=== PATIENT | male | born 1960 | race Caucasian/White ===

== ENCOUNTER 2017-11-14 00:17 | Emergency (ER) | payer SELFPAY ==
[~2017-11-14] VITALS: Ht 177.8 cm; Wt 64.6 kg
[~2017-11-14 00:17] MED LIST: AMOX1TAB64 PO; OXYC5TAB3 PO
[2017-11-14 00:23] VITALS: BP 100/72
[2017-11-14] MEDS ORDERED: HYDROcodone/APAP 5/325 TABLET ONE (01:06)
[2017-11-14] MEDS ORDERED: HYDROcodone/APAP 5/325 TABLET PO ONE (01:30)
== END 2017-11-14 01:36 | disposition home or self-care (01) ==
LOC: ED 01:27
DX: S00.212A Abrasion of left eyelid and periocular area, initial encounter (principal); F17.200 Nicotine dependence, unspecified, uncomplicated; X58.XXXA Exposure to other specified factors, initial encounter; Y93.89 Activity, other specified; Y92.89 Other specified places as the place of occurrence of the external cause; Y99.8 Other external cause status
CPT/HCPCS: 99283

== ENCOUNTER 2018-04-27 05:25 | Inpatient (IN) | payer MEDICAID ==
[~2018-04-27] VITALS: Ht 177.8 cm; Wt 65.6 kg
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
--- NOTE | 2018-04-27 05:52 | NUR ---
PT STATES "COULD NOT EATING CAUSE THIS? BECAUSE I HAVEN'T EATEN IN A DAY". THEN STATES "IF I'M HAVING CHEST PAIN, I CAN STAY FOR LIKE 3 DAYS RIGHT". PT WAS EDUCATED ON THE TESTS ORDERED AND THAT WE WILL WAIT FOR THE RESULTS FROM TESTS ORDERED BEFORE THE ERP MAKES A DECISION. PT WATCHING TV AND APPEARS TO BE COMFORTABLE AT THIS TIME.
[2018-04-27] MEDS ORDERED: SODIUM CHLORIDE FLUSH 10ML SYR IVF ONE (06:00)
--- NOTE | 2018-04-27 06:12 | NUR ---
LAB AT BEDSIDE
[2018-04-27 06:32] LABS: BASOPHILS # (AUTO) 0.02 x10^3/uL (0-0.1); BASOPHILS % (AUTO) 0 % (0-1); EOSINOPHILS # (AUTO) 0.16 x10^3/uL (0-0.4); EOSINOPHILS % (AUTO) 2 % (1-7); LYMPHOCYTES # (AUTO) 1.04 x10^3/uL (1-3.4); LYMPHOCYTES % (AUTO) 15 % (22-44); MD NO; MEAN CORPUSCULAR HEMOGLOBIN 30.6 pg (27.5-34.5); MEAN CORPUSCULAR HGB CONC 33.5 g/dL (33.2-36.2); MEAN CORPUSCULAR VOLUME 91.2 fL (81-97); MEAN PLATELET VOLUME 6.6 fL (7.4-10.4); MONOCYTES # (AUTO) 0.27 x10^3/uL (0.2-0.8); MONOCYTES % (AUTO) 4 % (2-9); NEUTROPHILS # (AUTO) 5.27 x10^3/uL (1.8-6.8); NEUTROPHILS % (AUTO) 78 % (42-75); PLATELET COUNT 275 x10^3/uL (130-400); RED BLOOD COUNT 4.45 x10^6/uL (4.38-5.82)
[2018-04-27 06:45] LABS: ALBUMIN 3.3 g/dL (3.4-5.0); ANION GAP 9 mmol/L (5-15); CALCIUM 8.5 mg/dL (8.5-10.1); CHLORIDE 111 mmol/L (98-107)
[2018-04-27 06:50] LABS: ALANINE AMINOTRANSFERASE 25 U/L (12-78); ALKALINE PHOSPHATASE 84 U/L (45-117); BILIRUBIN,TOTAL 0.3 mg/dL (0.2-1.0); CREATININE 0.98 mg/dL (0.7-1.3); TROPONIN I < 0.015 ng/mL (0.000-0.045)
[2018-04-27] MEDS ORDERED: SODIUM CHLORIDE FLUSH 10ML SYR IVF PRN (07:30)
--- NOTE | 2018-04-27 07:36 | NUR ---
MD DISCUSSED ADMIT WITH PT. AT THIS TIME PT AGREES WITH PLAN OF CARE.
[2018-04-27] MEDS: SODIUM CHLORIDE 0.9% 1,000 ML IV SCH ×2 (08:22→19:50)
[2018-04-27] MEDS ORDERED: NITROGLYCERIN 0.4 MG BOTTLE (25 TABS) SL PRN (08:30)
[2018-04-27] MEDS ORDERED: ONDANSETRON 2MG/ML, 2ML IVPush PRN (08:30)
[2018-04-27] MEDS ORDERED: LABETALOL 5MG/ML, 20ML IVPush PRN (08:30)
[2018-04-27] MEDS ORDERED: ACETAMINOPHEN 325 MG TABLET PO PRN (08:30)
[2018-04-27] MEDS: NICOTINE 14MG/24 HR PATCH.TD24 TD SCH (08:30)
[2018-04-27] MEDS ORDERED: POTASSIUM CHLORIDE 40 MEQ in SODIUM CHLORIDE 0.9% 500 ML IV ONE (08:30)
[2018-04-27 08:41] VITALS: BP 122/83
[2018-04-27 08:48] LABS: INTERNATIONAL NORMALIZED RATIO 0.94 (0.93-1.1)
[2018-04-27] MEDS ORDERED: PLEASE ENTER HEIGHT AND WEIGHT MC SCH ×2 (09:00→10:43)
[2018-04-27 09:04] LABS: THYROID STIMULATING HORMONE 0.909 mIU/L (0.358-3.740)
[2018-04-27 11:27] LABS: TROPONIN I < 0.015 ng/mL (0.000-0.045)
[2018-04-27] MEDS ORDERED: HEPARIN 5,000 UNITS/ML, 1ML IV ONE (12:00)
[2018-04-27] MEDS ORDERED: HEPARIN 25,000 UNITS/500ML PMX 500 ML IV PRN (12:00)
[2018-04-27] MEDS ORDERED: HEPARIN 5,000 UNITS/ML, 1ML IV PRN (12:00)
[2018-04-27] MEDS ORDERED: SODIUM CHLORIDE 0.9% 1,000 ML IV ONE (12:02)
[2018-04-27 12:37] VITALS: BP 120/75
[2018-04-27 19:16] VITALS: BP 109/69
[2018-04-27] MEDS ORDERED: ATORVASTATIN 80 MG TABLET PO SCH (21:00)
[2018-04-28 01:11] VITALS: BP 111/68
[2018-04-28 02:19] LABS: BASOPHILS # (AUTO) 0.07 x10^3/uL (0-0.1); BASOPHILS % (AUTO) 1 % (0-1); EOSINOPHILS % (AUTO) 5 % (1-7); LYMPHOCYTES % (AUTO) 35 % (22-44); MD NO; MEAN CORPUSCULAR HEMOGLOBIN 30.7 pg (27.5-34.5); MEAN CORPUSCULAR HGB CONC 33.6 g/dL (33.2-36.2); MEAN CORPUSCULAR VOLUME 91.5 fL (81-97); MEAN PLATELET VOLUME 6.8 fL (7.4-10.4); MONOCYTES # (AUTO) 0.47 x10^3/uL (0.2-0.8); MONOCYTES % (AUTO) 8 % (2-9); NEUTROPHILS % (AUTO) 50 % (42-75); PLATELET COUNT 272 x10^3/uL (130-400); RED BLOOD COUNT 4.19 x10^6/uL (4.38-5.82)
[2018-04-28 02:33] LABS: ALANINE AMINOTRANSFERASE 22 U/L (12-78); ALBUMIN 2.8 g/dL (3.4-5.0); ANION GAP 6 mmol/L (5-15); CHLORIDE 111 mmol/L (98-107)
[2018-04-28 02:43] LABS: ALKALINE PHOSPHATASE 76 U/L (45-117); BILIRUBIN,TOTAL 0.4 mg/dL (0.2-1.0); THYROID STIMULATING HORMONE 0.777 mIU/L (0.358-3.740); TOTAL PROTEIN 6.3 g/dL (6.4-8.2)
[2018-04-28] MEDS: SODIUM CHLORIDE 0.9% 1,000 ML IV SCH (05:15)
[2018-04-28 07:04] VITALS: BP 91/53
[2018-04-28 08:07] LABS: TROPONIN I < 0.015 ng/mL (0.000-0.045)
[2018-04-28] MEDS: NICOTINE 14MG/24 HR PATCH.TD24 TD SCH (08:28)
[2018-04-28] MEDS ORDERED: ASPIRIN 81 MG TABLET CHEW PO SCH (09:00)
[2018-04-28 11:54] LABS: AMPHETAMINE SCREEN, URINE Positive (Negative); BARBITURATE SCREEN, URINE Negative (Negative); BENZODIAZEPINE SCREEN, URINE Negative (Negative); CANNABINOID SCREEN, URINE Positive (Negative); COCAINE SCREEN, URINE Negative (Negative); METHADONE SCREEN, URINE Negative (Negative); OPIATE SCREEN, URINE Negative (Negative)
== END 2018-04-28 17:00 | disposition left against medical advice (07) | DRG 311 ==
LOC: ED 05:39 → EDIP 07:43 → 5SO 08:38
PROVIDERS: ADMIT Hospitalist; ATTEND Hospitalist
DX: I20.9 Angina pectoris, unspecified (principal); E44.1 Mild protein-calorie malnutrition; I99.8 Other disorder of circulatory system; E87.6 Hypokalemia; F12.10 Cannabis abuse, uncomplicated; F17.200 Nicotine dependence, unspecified, uncomplicated; I25.2 Old myocardial infarction; Z82.49 Family history of ischemic heart disease and other diseases of the circulatory system; Z86.73 Personal history of transient ischemic attack (TIA), and cerebral infarction without residual deficits; Z90.49 Acquired absence of other specified parts of digestive tract; Z68.20 Body mass index [BMI] 20.0-20.9, adult; Z88.8 Allergy status to other drugs, medicaments and biological substances; Z53.21 Procedure and treatment not carried out due to patient leaving prior to being seen by health care provider
CPT/HCPCS: 36415; 71045; 80053; 80307; 83690; 83735; 84443; 84484; 85025; 85520; 85610; 85651; 85730; 93005; 93306; 99285; G0378; J1644; J3480; J7040

== ENCOUNTER 2018-10-29 14:09 | Emergency (ER) | payer MEDICAID ==
[~2018-10-29] VITALS: Ht 177.8 cm; Wt 64.6 kg
[2018-10-29 14:18] VITALS: BP 114/77
== END 2018-10-29 15:38 | disposition home or self-care (01) ==
LOC: ED 15:32
DX: M25.532 Pain in left wrist (principal); F17.200 Nicotine dependence, unspecified, uncomplicated; X50.1XXA Overexertion from prolonged static or awkward postures, initial encounter; Y93.89 Activity, other specified; Y92.89 Other specified places as the place of occurrence of the external cause; Y99.8 Other external cause status
CPT/HCPCS: 99283

== ENCOUNTER 2018-10-29 23:51 | Emergency (ER) | payer MEDICAID ==
[~2018-10-29] VITALS: Ht 177.8 cm; Wt 64.0 kg
[2018-10-30 00:34] VITALS: BP 112/78
== END 2018-10-30 00:40 | disposition home or self-care (01) ==
LOC: ED 23:59
DX: M10.032 Idiopathic gout, left wrist (principal); Z86.73 Personal history of transient ischemic attack (TIA), and cerebral infarction without residual deficits; Z90.49 Acquired absence of other specified parts of digestive tract; F17.200 Nicotine dependence, unspecified, uncomplicated
CPT/HCPCS: 96372; 99283; J1885

== ENCOUNTER 2019-03-07 06:13 | Emergency (ER) | payer MEDICAID ==
[~2019-03-07] VITALS: Ht 177.8 cm; Wt 62.0 kg
[2019-03-07 06:17] VITALS: BP 122/85
--- NOTE | 2019-03-07 06:46 | NUR ---
report received from raj naylor.
--- NOTE | 2019-03-07 07:16 | NUR ---
Patient given discharge instructions and they have confirmed that they understand the instructions.
== END 2019-03-07 07:16 | disposition home or self-care (01) ==
LOC: ED 06:58
DX: T68.XXXA Hypothermia, initial encounter (principal); F17.200 Nicotine dependence, unspecified, uncomplicated; Z86.73 Personal history of transient ischemic attack (TIA), and cerebral infarction without residual deficits; X31.XXXA Exposure to excessive natural cold, initial encounter
CPT/HCPCS: 99283

== ENCOUNTER 2019-05-20 03:47 | Emergency (ER) | payer MEDICAID ==
[~2019-05-20] VITALS: Ht 177.8 cm; Wt 70.0 kg
--- NOTE | 2019-05-20 04:06 | NUR ---
Pt c/o cough x1 month, states it got worse 2 weeks ago. Placed vitals signs monitors on pt, side rails up and locked, call light within reach.
--- NOTE | 2019-05-20 04:58 | NUR ---
pt to xray
[2019-05-20] MEDS ORDERED: ALBUTEROL/IPRATROPIUM 2.5MG/0.5MG, 3 ML NPPB ONE (05:00)
[2019-05-20 05:13] VITALS: BP 118/73
--- NOTE | 2019-05-20 05:14 | NUR ---
pt resting on gurney, monitors in place, denies needs, call light within reach. awaiting xray result
== END 2019-05-20 05:52 | disposition home or self-care (01) ==
LOC: ED 03:47
DX: J18.9 Pneumonia, unspecified organism (principal); Z90.49 Acquired absence of other specified parts of digestive tract; Z86.73 Personal history of transient ischemic attack (TIA), and cerebral infarction without residual deficits; Z88.1 Allergy status to other antibiotic agents
CPT/HCPCS: 71046; 94640; 99283; J7620

== ENCOUNTER 2019-06-25 14:41 | Inpatient (IN) | payer MEDICAID ==
[~2019-06-25] VITALS: Ht 167.6 cm; Wt 69.2 kg
--- NOTE | 2019-06-25 15:21 | NUR ---
REPORT TO SHANNON EDGAR.
[2019-06-25] MEDS ORDERED: SODIUM CHLORIDE FLUSH 10ML SYR IVF ONE (15:30)
--- NOTE | 2019-06-25 15:33 | NUR ---
PT TO CT AT THIS TIME.
[2019-06-25] MEDS ORDERED: LIDOCAINE 2%,20 ML JEL.PF.APP MM ONE (15:40)
[2019-06-25 15:43] LABS: BASOPHILS # (AUTO) 0.04 x10^3/uL (0-0.1); BASOPHILS % (AUTO) 1 % (0-1); EOSINOPHILS # (AUTO) 0.17 x10^3/uL (0-0.4); EOSINOPHILS % (AUTO) 3 % (1-7); LYMPHOCYTES # (AUTO) 1.39 x10^3/uL (1-3.4); LYMPHOCYTES % (AUTO) 27 % (22-44); MD NO; MEAN CORPUSCULAR HEMOGLOBIN 29.5 pg (27.5-34.5); MEAN CORPUSCULAR HGB CONC 33.2 g/dL (33.2-36.2); MEAN PLATELET VOLUME 6.5 fL (7.4-10.4); MONOCYTES # (AUTO) 0.57 x10^3/uL (0.2-0.8); MONOCYTES % (AUTO) 11 % (2-9); NEUTROPHILS # (AUTO) 2.95 x10^3/uL (1.8-6.8); NEUTROPHILS % (AUTO) 58 % (42-75); PLATELET COUNT 346 x10^3/uL (130-400); RED BLOOD COUNT 4.39 x10^6/uL (4.38-5.82); RED CELL DISTRIBUTION WIDTH 14.1 % (9.4-14.8)
[2019-06-25 15:47] LABS: INTERNATIONAL NORMALIZED RATIO 0.93 (0.93-1.1); PROTHROMBIN TIME 9.9 Seconds (9.6-11.5)
[2019-06-25 15:49] LABS: ANION GAP 6 mmol/L (5-15); CALCIUM 8.3 mg/dL (8.5-10.1); CHLORIDE 112 mmol/L (98-107)
[2019-06-25 15:54] LABS: CREATININE 0.94 mg/dL (0.7-1.3)
[2019-06-25 15:55] LABS: ALANINE AMINOTRANSFERASE 29 U/L (12-78); ALKALINE PHOSPHATASE 92 U/L (45-117); TOTAL PROTEIN 7.3 g/dL (6.4-8.2); TROPONIN I < 0.015 ng/mL (0.000-0.045)
[2019-06-25 16:02] LABS: BILIRUBIN,TOTAL < 0.1 mg/dL (0.2-1.0); SALICYLATE LEVEL < 1.7 mg/dL (2.8-20.0)
[2019-06-25 16:09] LABS: MICROSCOPIC AUTO
[2019-06-25 16:12] LABS: CULTURE INDICATED? YES
--- NOTE | 2019-06-25 16:12 | NUR ---
PT TRANSPORTED TO ED17.
[2019-06-25 16:20] LABS: AMPHETAMINE SCREEN, URINE Positive (Negative); BARBITURATE SCREEN, URINE Negative (Negative); BENZODIAZEPINE SCREEN, URINE Negative (Negative); CANNABINOID SCREEN, URINE Positive (Negative); COCAINE SCREEN, URINE Negative (Negative); METHADONE SCREEN, URINE Negative (Negative); OPIATE SCREEN, URINE Negative (Negative)
--- NOTE | 2019-06-25 16:26 | NUR ---
REPORT RECEIVED FROM HERVE ORTEGA. PT RESTING ON [place]. VS STABLE.
[2019-06-25] MEDS ORDERED: POLYETHYLENE GLYCOL 17 GM PACKET PO PRN (17:30)
[2019-06-25] MEDS ORDERED: NITROGLYCERIN 0.4 MG BOTTLE (25 TABS) SL PRN (17:30)
[2019-06-25] MEDS ORDERED: ZOLPIDEM 5MG TABLET PO PRN (17:30)
[2019-06-25] MEDS ORDERED: ONDANSETRON 2MG/ML, 2ML IVPush PRN (17:30)
[2019-06-25] MEDS ORDERED: hydrALAzine 20 MG/ML, 1ML IVPush PRN (17:30)
[2019-06-25] MEDS ORDERED: GUAIFENESIN/COD200MG-20MG/10ML LIQUID PO PRN (17:30)
[2019-06-25] MEDS ORDERED: BISACODYL 10 MG SUPP PR PRN (17:30)
[2019-06-25 17:47] LABS: FREE T4 (FREE THYROXINE) 1.04 ng/dL (0.76-1.46); TROPONIN I < 0.015 ng/mL (0.000-0.045)
[2019-06-25] MEDS: SODIUM CHLORIDE 0.9% 1,000 ML IV SCH (17:47)
--- NOTE | 2019-06-25 17:48 | NUR ---
ATTEMPTED TO CALL REPORT. SUZI ORTEGA, UNAVAILABLE. WILL CALL ME BACK.
[2019-06-25 19:57] VITALS: BP 122/84
[2019-06-25] MEDS: ENOXAPARIN 40 MG/0.4 ML SQ SCH (20:23)
[2019-06-25] MEDS: FAMOTIDINE 20 MG TABLET PO SCH (20:29)
[2019-06-25 23:45] LABS: TROPONIN I < 0.015 ng/mL (0.000-0.045)
[2019-06-26 00:12] VITALS: BP 133/76
[2019-06-26 02:52] VITALS: BP 111/74
[2019-06-26] MEDS: SODIUM CHLORIDE 0.9% 1,000 ML IV SCH (02:53)
[2019-06-26 05:30] VITALS: BP 157/73
[2019-06-26] MEDS: ASPIRIN 325 MG TABLET EC PO SCH (06:00)
[2019-06-26 06:10] LABS: BASOPHILS # (AUTO) 0.05 x10^3/uL (0-0.1); BASOPHILS % (AUTO) 1 % (0-1); EOSINOPHILS # (AUTO) 0.19 x10^3/uL (0-0.4); EOSINOPHILS % (AUTO) 3 % (1-7); LYMPHOCYTES # (AUTO) 1.61 x10^3/uL (1-3.4); LYMPHOCYTES % (AUTO) 25 % (22-44); MD NO; MEAN CORPUSCULAR HEMOGLOBIN 29.4 pg (27.5-34.5); MEAN CORPUSCULAR HGB CONC 32.8 g/dL (33.2-36.2); MEAN CORPUSCULAR VOLUME 89.5 fL (81-97); MEAN PLATELET VOLUME 6.6 fL (7.4-10.4); MONOCYTES # (AUTO) 0.73 x10^3/uL (0.2-0.8); MONOCYTES % (AUTO) 11 % (2-9); NEUTROPHILS # (AUTO) 3.84 x10^3/uL (1.8-6.8); NEUTROPHILS % (AUTO) 60 % (42-75); PLATELET COUNT 305 x10^3/uL (130-400); RED BLOOD COUNT 4.22 x10^6/uL (4.38-5.82); RED CELL DISTRIBUTION WIDTH 14.4 % (9.4-14.8)
[2019-06-26 06:13] LABS: ANION GAP 6 mmol/L (5-15); CALCIUM 8.3 mg/dL (8.5-10.1); CHLORIDE 114 mmol/L (98-107)
[2019-06-26 06:17] LABS: CHOL/HDL RATIO 2.1; CHOLESTEROL, TOTAL 132 mg/dL (140-239); CREATININE 0.92 mg/dL (0.7-1.3); HDL CHOLESTEROL (DIRECT) 64 mg/dL (40-60); TRIGLYCERIDES 58 mg/dL (50-200); VLDL CHOLESTEROL 12 mg/dL (0-25)
[2019-06-26 06:18] LABS: HDL CHOL % 48 % (26-37); LDL CHOLESTEROL,CALCULATED 56 mg/dL (54-169); LDL/HDL RATIO 0.9 (0.5-3.0)
[2019-06-26] MEDS: FAMOTIDINE 20 MG TABLET PO SCH ×2 (08:04→20:36)
[2019-06-26 08:10] VITALS: BP 121/75
[2019-06-26] MEDS ORDERED: IBUPROFEN 200 MG TABLET PO PRN (09:00)
[2019-06-26] MEDS ORDERED: GADOTERATE 7.5 MMOL/15 ML SYR ONE (09:55)
[2019-06-26] MEDS ORDERED: LACTULOSE 20 GM/30 ML UDC PO ONE (11:00)
--- NOTE | 2019-06-26 12:13 | NUR ---
REC: return to previous living situation; do not anticipate need for FARE ENF[employer]CEMENT OFFICER intervention at time of discharge. Addendum: 06/26/19 at 1214 by Dara JUAREZ Amended: Links added.
[2019-06-26 16:02] VITALS: BP 117/77
[2019-06-26 19:46] VITALS: BP 122/69
[2019-06-26] MEDS: ENOXAPARIN 40 MG/0.4 ML SQ SCH (20:36)
[2019-06-27 00:31] VITALS: BP 107/57
[2019-06-27 04:51] LABS: BASOPHILS # (AUTO) 0.06 x10^3/uL (0-0.1); BASOPHILS % (AUTO) 1 % (0-1); EOSINOPHILS # (AUTO) 0.23 x10^3/uL (0-0.4); EOSINOPHILS % (AUTO) 3 % (1-7); LYMPHOCYTES # (AUTO) 1.67 x10^3/uL (1-3.4); LYMPHOCYTES % (AUTO) 25 % (22-44); MD NO; MEAN CORPUSCULAR HEMOGLOBIN 29.8 pg (27.5-34.5); MEAN CORPUSCULAR HGB CONC 33.3 g/dL (33.2-36.2); MEAN CORPUSCULAR VOLUME 89.5 fL (81-97); MEAN PLATELET VOLUME 6.7 fL (7.4-10.4); MONOCYTES # (AUTO) 0.68 x10^3/uL (0.2-0.8); MONOCYTES % (AUTO) 10 % (2-9); NEUTROPHILS # (AUTO) 4.09 x10^3/uL (1.8-6.8); NEUTROPHILS % (AUTO) 61 % (42-75); PLATELET COUNT 283 x10^3/uL (130-400); RED CELL DISTRIBUTION WIDTH 13.8 % (9.4-14.8)
[2019-06-27 05:06] LABS: ANION GAP 6 mmol/L (5-15); CALCIUM 8.1 mg/dL (8.5-10.1); CHLORIDE 113 mmol/L (98-107)
[2019-06-27 05:07] LABS: CREATININE 0.79 mg/dL (0.7-1.3)
[2019-06-27] MEDS: ASPIRIN 325 MG TABLET EC PO SCH (06:00)
[2019-06-27 07:32] VITALS: BP 124/71
[2019-06-27] MEDS: FAMOTIDINE 20 MG TABLET PO SCH (08:27)
== END 2019-06-27 13:56 | disposition left against medical advice (07) | DRG 948 ==
LOC: ED 15:33 → EDIP 16:33 → 4WST 18:21
PROVIDERS: ADMIT Family Medicine; ATTEND Hospitalist
DX: R53.1 Weakness (principal); F12.90 Cannabis use, unspecified, uncomplicated; F15.90 Other stimulant use, unspecified, uncomplicated; Z53.29 Procedure and treatment not carried out because of patient's decision for other reasons; Z88.8 Allergy status to other drugs, medicaments and biological substances; Z86.73 Personal history of transient ischemic attack (TIA), and cerebral infarction without residual deficits
CPT/HCPCS: 36415; 70450; 70553; 71045; 80048; 80053; 80061; 80307; 81001; 82140; 82962; 83036; 83605; 83690; 83735; 84100; 84439; 84443; 84484; 85025; 85610; 85651; 87040; 87086; 93005; 93306; 93321; 93325; 93880; G0378; J1650; A9575; J7030

== ENCOUNTER 2019-09-13 20:20 | Emergency (ER) | payer MEDICAID ==
[~2019-09-13] VITALS: Ht 177.8 cm; Wt 69.3 kg
[2019-09-13] MEDS ORDERED: KETOROLAC 30 MG/1 ML ONE ×2 (20:55→20:58)
--- NOTE | 2019-09-13 21:06 | NUR ---
ASSIST RN: ERP TO BEDSIDE. PT SITTING IN BED, NO SIGNS OF DISTRESS.
--- NOTE | 2019-09-13 21:17 | NUR ---
REPORT TO SHANNON HAIDER WHO ASSUMED CARE OF PT.
[2019-09-13] MEDS ORDERED: SULFAMETH./TRIMETHOPRIM DS 800MG/160MG TABLET PO ONE (21:30)
[2019-09-13] MEDS ORDERED: CEFTRIAXONE 1,000 MG IM ONE (21:30)
--- NOTE | 2019-09-13 21:32 | NUR ---
RECEIVED REPORT FROM SHANNON UMANZOR. LAB TO BEDSIDE, PT TALKING WITH [employer], NO SIGNS OF DISTRESS.
[2019-09-13] MEDS ORDERED: SULFAMETH./TRIMETHOPRIM DS 800MG/160MG TABLET ONE (21:36)
[2019-09-13] MEDS ORDERED: CEFTRIAXONE 1,000 MG ONE (21:37)
[2019-09-13 21:55] LABS: BASOPHILS # (AUTO) 0.06 x10^3/uL (0-0.1); BASOPHILS % (AUTO) 1 % (0-1); EOSINOPHILS # (AUTO) 0.24 x10^3/uL (0-0.4); EOSINOPHILS % (AUTO) 3 % (1-7); LYMPHOCYTES # (AUTO) 1.83 x10^3/uL (1-3.4); LYMPHOCYTES % (AUTO) 26 % (22-44); MD NO; MEAN CORPUSCULAR HGB CONC 33.1 g/dL (33.2-36.2); MEAN CORPUSCULAR VOLUME 90.6 fL (81-97); MONOCYTES # (AUTO) 0.63 x10^3/uL (0.2-0.8); MONOCYTES % (AUTO) 9 % (2-9); NEUTROPHILS # (AUTO) 4.37 x10^3/uL (1.8-6.8); NEUTROPHILS % (AUTO) 61 % (42-75); PLATELET COUNT 325 x10^3/uL (130-400); RED BLOOD COUNT 3.81 x10^6/uL (4.38-5.82); RED CELL DISTRIBUTION WIDTH 14.8 % (9.4-14.8)
[2019-09-13] MEDS ORDERED: KETOROLAC 60 MG/2 ML IM ONE (22:00)
[2019-09-13 22:04] LABS: ALBUMIN 2.9 g/dL (3.4-5.0); ANION GAP 7 mmol/L (5-15); CALCIUM 8.2 mg/dL (8.5-10.1); CHLORIDE 108 mmol/L (98-107); CREATININE 0.97 mg/dL (0.7-1.3)
--- NOTE | 2019-09-13 22:06 | NUR ---
PT LAYING IN BED, EYES CLOSED, RESPIRATIONS EVEN AND UNLABORED. MEDICATED TO MAR, EDUCATED TO BED AND STRAIGHTEN LEG TO AVOID MUSCLE SORENESS FROM SHOT OF ABX.
[2019-09-13 22:40] LABS: HCT (SEDRATE) 34.5 % (39.2-51.8)
--- NOTE | 2019-09-13 23:05 | NUR ---
PT REMAINS SLEEPING IN BED WITH EYES CLOSED, RESPIRATIONS EVEN AND UNLABORED.
[2019-09-13 23:42] VITALS: BP 115/77
== END 2019-09-13 23:46 | disposition home or self-care (01) ==
LOC: ED 20:46
DX: L03.114 Cellulitis of left upper limb (principal); F15.10 Other stimulant abuse, uncomplicated; Z72.9 Problem related to lifestyle, unspecified; M10.9 Gout, unspecified; Z86.73 Personal history of transient ischemic attack (TIA), and cerebral infarction without residual deficits; Z90.89 Acquired absence of other organs
CPT/HCPCS: 36415; 73110; 73130; 80048; 82040; 83605; 84550; 85025; 85651; 87040; 96372; 99284; J0696; J1885

== ENCOUNTER 2020-01-16 18:47 | Emergency (ER) | payer MEDICAID ==
[~2020-01-16] VITALS: Ht 177.8 cm; Wt 67.3 kg
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
[2020-01-16] MEDS ORDERED: KETOROLAC 30 MG/1 ML IM ONE (19:30)
--- NOTE | 2020-01-16 19:40 | NUR ---
XRAY AT BEDSIDE
[2020-01-16] MEDS ORDERED: KETOROLAC 30 MG/1 ML ONE (19:41)
[2020-01-16 19:46] VITALS: BP 113/63
== END 2020-01-16 20:04 | disposition home or self-care (01) ==
LOC: ED 19:50
DX: S63.501A Unspecified sprain of right wrist, initial encounter (principal); F17.200 Nicotine dependence, unspecified, uncomplicated; M10.9 Gout, unspecified; Z86.73 Personal history of transient ischemic attack (TIA), and cerebral infarction without residual deficits; Z90.89 Acquired absence of other organs; X58.XXXA Exposure to other specified factors, initial encounter; Y93.89 Activity, other specified; Y92.098 Other place in other non-institutional residence as the place of occurrence of the external cause; Y99.8 Other external cause status
CPT/HCPCS: 29125; 73110; 96372; 99283; J1885

== ENCOUNTER 2020-06-08 11:11 | Emergency (ER) | payer MEDICAID ==
[~2020-06-08] VITALS: Ht 172.7 cm; Wt 80.0 kg
[~2020-06-08 11:11] MED LIST changes: -OXYC5TAB3 PO; +OXYC5TAB98 PO
[2020-06-08] MEDS ORDERED: FLUORESCEIN OPHTHALMIC 1 MG STRIP ONE (11:15)
[2020-06-08 11:32] VITALS: BP 124/80
== END 2020-06-08 12:00 | disposition home or self-care (01) ==
LOC: ED 11:47
DX: H10.31 Unspecified acute conjunctivitis, right eye (principal); B30.9 Viral conjunctivitis, unspecified; I25.2 Old myocardial infarction; M10.9 Gout, unspecified; F17.200 Nicotine dependence, unspecified, uncomplicated; Z86.73 Personal history of transient ischemic attack (TIA), and cerebral infarction without residual deficits; Z90.89 Acquired absence of other organs; Z86.718 Personal history of other venous thrombosis and embolism
CPT/HCPCS: 99283

== ENCOUNTER 2020-08-20 19:36 | Emergency (ER) | payer MEDICAID ==
[~2020-08-20] VITALS: Ht 177.8 cm; Wt 80.0 kg
[2020-08-20 19:47] VITALS: BP 116/74
== END 2020-08-20 23:57 | disposition home or self-care (01) ==
LOC: ED 20:42
DX: S06.0X0A Concussion without loss of consciousness, initial encounter (principal); S52.515A Nondisplaced fracture of left radial styloid process, initial encounter for closed fracture; S02.40DA Maxillary fracture, left side, initial encounter for closed fracture; S02.32XA Fracture of orbital floor, left side, initial encounter for closed fracture; S02.842A Fracture of lateral orbital wall, left side, initial encounter for closed fracture; M25.512 Pain in left shoulder; M25.531 Pain in right wrist; F17.210 Nicotine dependence, cigarettes, uncomplicated; I25.2 Old myocardial infarction; M10.9 Gout, unspecified; F17.200 Nicotine dependence, unspecified, uncomplicated; Z59.0 Homelessness; Z86.73 Personal history of transient ischemic attack (TIA), and cerebral infarction without residual deficits; Z88.6 Allergy status to analgesic agent; Z88.1 Allergy status to other antibiotic agents; Y08.89XA Assault by other specified means, initial encounter; Y93.89 Activity, other specified; Y92.009 Unspecified place in unspecified non-institutional (private) residence as the place of occurrence of the external cause; Y99.8 Other external cause status
CPT/HCPCS: 29125; 70450; 70486; 99285